=== PATIENT | female | born 1985 | race Caucasian/White ===

== ENCOUNTER 2016-06-04 11:14 | Emergency (ER) | payer MEDICARE, OTHER ==
[~2016-06-04] VITALS: Ht 165.1 cm; Wt 65.0 kg
[~2016-06-04 11:14] MED LIST: ETAN50PE2 SQ; HYDR-3498 PO; MET25 PO
[2016-06-04 11:17] VITALS: Ht 165.1 cm; Wt 65.0 kg
[2016-06-04] MEDS ORDERED: IBUP-1542 PO (11:56)
[2016-06-04] MEDS ORDERED: ULT50 PO (11:56)
[2016-06-04] MEDS ORDERED: HYDROCODONE/APAP (5/325) TAB PO ONE (12:00)
--- NOTE | 2016-06-04 12:08 | ERD ---
ER Documentation Chief Complaint Date/Time DATE: 06/04/16 TIME: 11:59 Chief Complaint bodyaches x 2 weeks, cough x 2 days HPI The patient is a 30-year-old female here with a productive cough of white sputum 2 days and low-grade headache; and a reported flare-up of her ankylosing spondylitis with neck pain, bilateral lower rib pain, and right hip pain. She denies fever, chills, nausea, vomiting, diarrhea, difficulty breathing, shortness of breath, difficulty swallowing, chest pain, or any other symptoms or concerns. She denies any recent injury, accident, trauma, or falls. Her neck, right hip, and rib pain are per her usual flare-ups. She just started taking her Enbrel again after her delivery. She usually takes ibuprofen and occasionally norco in the past for her chronic pain. She is taking Motrin currently with no relief. She has a follow-up with her doctor regarding this on 06/12/16. She denies sick contacts, smoking, and recent international travel. The patient is 4 weeks with a vacuum assisted vaginal delivery. She denies any complications. ROS All systems reviewed and are negative except as per history of present illness. Medications Home Meds Active Scripts Tramadol HCl (Tramadol HCl) 50 Mg Tablet, 50 MG PO Q6 Y for PAIN, #20 TAB Prov:ALAN LOERA NP 06/04/16 Ibuprofen* (Motrin*) 600 Mg Tab, 600 MG PO Q6H Y for PAIN AND OR ELEVATED TEMP, #30 TAB Prov:ALAN LOERA NP 06/04/16 Hydrocodone Bit-Acetaminophen* (Loranger*) 5-325 Mg Tab, 1 TAB PO Q6 Y for PAIN, # 16 TAB Prov:DMITRY HINTON MD 01/19/15 Reported Medications Etanercept (Enbrel) 50 Mg/Ml Pen.injctr, 50 MG SQ EVERY WEDNESDAY for SPONDYLITIS 08/19/13 Methotrexate* (Methotrexate*) 2.5 Mg Tab, 10 MG PO EVERY WEDNESDAY, TAB 08/19/13 Allergies Allergies: Coded Allergies: No Known Allergy (Unverified , 04/12/14) PMhx/Soc History of Surgery: Yes (B/L HIP REPLACEMENT ) Anesthesia Reaction: No Hx Neurological Disorder: No Hx Respiratory Disorders: No Hx Cardiac Disorders: No Hx Psychiatric Problems: No Hx Miscellaneous Medical Probl: Yes (ANKYLOSING SPONDILITIS ) Hx Alcohol Use: No Hx Substance Use: No Hx Tobacco Use: No Smoking Status: Never smoker Physical Exam Vitals Vital Signs Date Time Temp Pulse Resp B/P Pulse Ox O2 Delivery O2 Flow Rate FiO2 06/04/16 11:17 97.9 105 18 118/79 99 Physical Exam Const: No acute distress, nontoxic appearing Vital signs: Reviewed by me afebrile, mild tachycardia, Head: Atraumatic Eyes: Normal Conjunctiva ENT: Normal External Ears, Nose and Mouth. Neck: Full range of motion. Moderate bony tenderness to palpation. no step-off. No evidence of trauma. No meningismus. Resp: Clear to auscultation bilaterally. No adventitious breath sounds. No increased respiratory effort. Good excursion. Chest: Lower ribs moderately tender to palpation. Cardio: Regular rate and rhythm, no murmurs Abd: Soft, non tender, non distended. Normal bowel sounds Skin: No petechiae or rashes Back: No midline or flank tenderness Ext: Full range of motion all extremities. Strength 5/5 all extremities. Sensation intact to light touch all extremities. No cyanosis, or edema Neur: Awake and alert Psych: Normal Mood and Affect Results 24 hrs Current Medications Medications (Trade) Dose Ordered Sig/Ai Route PRN Reason Start Time Stop Time Status Last Admin Dose Admin Acetaminophen/ Hydrocodone Bitart (Loranger (5/325)) 1 tab ONCE ONCE PO 06/04/16 12:00 06/04/16 12:01 DC 06/04/16 11:45 Procedures/MDM Nursing Notes Reviewed Previous Medical Records requested via [facility]. EMERGENCY DEPARTMENT COURSE / MEDICAL DECISION MAKING: The patient comes to the ED secondary to productive cough of white sputum and mild headache 2 days; neck pain, rib pain, right hip pain, chronic. Differential diagnosis upon initial evaluation includes but is not limited to: Pneumonia, meningitis, sepsis, upper respiratory tract infection, and others. The patient was treated with Loranger 5/325 mg p.o. Final impression: 1. URI, likely viral 2. Chronic pain 3. Neck pain 4. Right hip pain 5. Bilateral lower rib pain Based on patient's history of present illness and physical examination the decision was made to discharge. Given that the patient is afebrile, her history of present illness, and her benign physical exam, at this time a low suspicion for meningitis, pneumonia, sepsis, or other serious cause of cough. There is no evidence of life threatening injuries or illnesses at this time. On re-examination, patient resting in no distress, stable vital signs, reports feeling better and safe for discharge with outpatient follow up with PMD in 1-2 days. Patient given return precautions. Prescriptions Ibuprofen Tramadol Departure Diagnosis: Primary Impression: URI (upper respiratory infection) URI type: unspecified viral URI Qualified Code: J06.9 - Viral upper respiratory tract infection Additional Impressions: Neck pain Rib pain Hip pain, right Condition: Stable Patient Instructions: Adult Self-Care for Colds Referrals: your doctor Additional Instructions: Call your primary care doctor TOMORROW for an appointment during the next 2-3 days. See the doctor sooner or return here if your condition worsens before your appointment time. ALAN LOERA NP Jun 04, 2016 12:08
== END 2016-06-04 12:05 | disposition home or self-care (01) ==
LOC: FTE 11:14
DX: J06.9 Acute upper respiratory infection, unspecified (principal); M54.2 Cervicalgia; M25.551 Pain in right hip; R07.81 Pleurodynia; Z96.643 Presence of artificial hip joint, bilateral
CPT/HCPCS: 99283